=== PATIENT | female | born 1995 | race Caucasian/White ===

== ENCOUNTER 2017-05-16 07:16 | Emergency (ER) | payer BC ==
[~2017-05-16] VITALS: Ht 160 cm; Wt 60.0 kg
[2017-05-16 07:26] VITALS: BP 123/72; PULSE 85; RESP 16; TEMP 98.1; O2SAT 100
--- NOTE | 2017-05-16 09:29 | PD ---
HPI Chief Complaint: Headache Time Seen by Provider: 09:28 Travel History International Travel<30 days: No Contact w/Intl Traveler<30days: No Traveled to known affect area: No History of Present Illness HPI 21-year-old female presents to the emergency Department with complaint of a migraine headache that started at approximately 8 PM last night. She has history of migraine headaches and she was in first grade. This headache is consistent with past headaches. The headache is behind her right eye. She reports vomiting. She does vomit with past migraine headaches also. She last vomited within the last 2 hours. Reports photophobia to the right eye. Denies change in vision. Denies change in mentation, confusion, disorientation, slurred speech, focal deficits or weakness. Rates headache 09/19. Describes it as a throbbing, knocking sensation. Has taken Excedrin and Zofran with no relief of symptoms. Says on the Excedrin doesn't work she goes to urgent care where she lives and they give her an antinausea medication, Toradol, and Benadryl and it works for her. She also gets Botox injections every 3 months for her migraine headaches, but she says she is overdue. She was in the sun yesterday and has a sunburn and thinks it may have exacerbated her headache. She is here on vacation her primary care provider is in [place]. No known allergies. History of migraines. Denies other significant past medical history. Has no other medical complaints. No other modifying factors or associated signs and symptoms. PFSH Social History Alcohol Use: Yes (socially) Tobacco Use: No Substance Use: No Allergies-Medications (Allergen,Severity, Reaction): Coded Allergies: No Known Allergies (Unverified , 05/16/17) Reported Meds & Prescriptions Reported Meds & Active Scripts Active Zofran Odt (Ondansetron Odt) 4 Mg Tab 4 Mg SL Q8HR PRN Ibuprofen 800 Mg Tab 800 Mg PO Q8H PRN Reported [birthcontrol] PO DAILY Lexapro (Escitalopram Oxalate) 10 Mg Tab 10 Mg PO DAILY Review of Systems Except as stated in HPI: all other systems reviewed are Neg Physical Exam Narrative GENERAL: Well-nourished, well-developed female patient, in no acute distress SKIN: Warm and dry. HEAD: Atraumatic. Normocephalic. No facial droop noted. Tetanus midline. Shoulder shrug equal. Finger to nose test normal. EYES: Pupils equal and round at 4 mm with brisk reaction. No scleral icterus. No injection or drainage. PERRLA. EOMI. ENT: Mucosa pink and moist. Airway patent. NECK: Trachea midline. No lymphadenopathy. CARDIOVASCULAR: Regular rate and rhythm. No murmur appreciated. RESPIRATORY: No accessory muscle use. Clear to auscultation. Breath sounds equal bilaterally. GASTROINTESTINAL: Abdomen soft, non-tender, nondistended. Hepatic and splenic margins not palpable. Bowel sounds are active 4 quadrants. MUSCULOSKELETAL: No obvious deformities. No clubbing. No cyanosis. No edema. NEUROLOGICAL: Awake and alert. Oriented 4. No obvious cranial nerve deficits. Motor grossly within normal limits. Normal speech. No ataxia. No mid -line drift. No upper or lower extremity drift. Sensory intact and equal bilaterally. Moves all extremities. 5/5 strength to all extremities. PSYCHIATRIC: Appropriate mood and affect; insight and judgment normal. Data Data Last Documented VS Vital Signs Date Time Temp Pulse Resp B/P (MAP) Pulse Ox O2 Delivery O2 Flow Rate FiO2 05/16/17 07:26 98.1 85 16 123/72 (89) 100 Orders Orders Iv Access Insert/Monitor (05/16/17 09:30) Sodium Chloride 0.9% Flush (Ns Flush) (05/16/17 09:30) Ketorolac Inj (Toradol Inj) (05/16/17 09:30) Prochlorperazine Inj (Compazine Inj) (05/16/17 09:30) Diphenhydramine Inj (Benadryl Inj) (05/16/17 09:30) Sodium Chlor 0.9% 1000 Ml Inj (Ns 1000 M (05/16/17 09:30) Sodium Chlor 0.9% 1000 Ml Inj (Ns 1000 M (05/16/17 10:30) Ketorolac Inj (Toradol Inj) (05/16/17 10:45) MDM Medical Decision Making Medical Screen Exam Complete: Yes Emergency Medical Condition: Yes Medical Record Reviewed: Yes Differential Diagnosis Migraine headache, acute headache, tension headache Narrative Course 21-year-old female with history of migraine headaches presents with onset of migraine headache at approximately 8 PM last night. This headache is consistent with past headaches. Her neuro exam is unremarkable. She is very familiar with the treatment of her headaches and is requesting an antinausea medication, Toradol, and Benadryl. IV, Benadryl, Toradol, Compazine ordered. 1028: Patient continues to have headache as says it hasn't gone down at all. She was just administered compazine. Says Imitrex gave her lock jaw the last time it was given to her. I will order another NS bolus and 30mg IM Toradol and re-evaluate. 1139: Patient says her headache is completely gone. Rates pain 0/10. Ibuprofen and Zofran prescribed for home. Instructed patient to follow up with primary care provider. Patient verbalizes understanding and agreement with treatment plan. Patient is medically cleared and stable for discharge. Discussed reasons to return to the emergency department. Patient agrees with treatment plan. The patients vital signs are stable and the patient is stable for outpatient follow-up and treatment. Patient discharged home, stable and in no acute distress. Diagnosis Primary Impression: Migraine headache Qualified Codes: G43.909 - Migraine, unspecified, not intractable, without status migrainosus Referrals: Neurologist Primary Care Physician Patient Instructions: General Instructions, Migraine Headache (ED) Additional Instructions: Ibuprofen or Tylenol as directed and as needed to reduce headache Get plenty of rest: do not over sleep rest and relax in a dark, quiet room as needed Place an ice pack on the back of her neck to reduce head pain as needed Keep a headache diary of what triggers her headaches and what treatment is most effective Avoid identifiable triggers Avoid smoking, alcohol and caffeine consumption Reduce stress Follow-up with primary care provider within 1-2 days Follow-up with neurology Return immediately to the emergency department with worsening symptoms Med/Other Pt SpecificInfo: Prescription(s) given Scripts Ondansetron Odt (Zofran Odt) 4 Mg Tab 4 MG SL Q8HR Y for Nausea/Vomiting, #6 TAB 0 Refills Prov: Padma Porter 05/16/17 Ibuprofen (Ibuprofen) 800 Mg Tab 800 MG PO Q8H Y for PAIN SCALE 1 TO 10, #20 TAB 0 Refills Prov: Padma Porter 05/16/17 Disposition: 01 DISCHARGE HOME Condition: Stable Padma Porter May 16, 2017 09:29
[2017-05-16] MEDS ORDERED: SODIUM CHLOR 0.9% 1000 ML INJ 1,000 ML IV ONE ×2 (09:30→10:30)
[2017-05-16] MEDS ORDERED: diphenhydrAMINE HCL 50 MG/ML VIAL IVP ONE (09:30)
[2017-05-16] MEDS ORDERED: KETOROLAC TROMETHAMINE 30 MG/ML (IVP) VIAL IVP ONE (09:30)
[2017-05-16] MEDS ORDERED: PROCHLORPERAZINE INJ 10 MG/2 ML VIAL IVP ONE (09:30)
[2017-05-16] MEDS ORDERED: SODIUM CHLORIDE 0.9% FLUSH 10 ML FLUSH IVF PRN (09:30)
[2017-05-16] MEDS ORDERED: birthcontrol PO (09:32)
[2017-05-16] MEDS ORDERED: LEXA10TA PO (09:32)
[2017-05-16] MEDS ORDERED: KETOROLAC TROMETHAMINE 60 MG/2 ML (IM) VIAL IM ONE (10:45)
[2017-05-16] MEDS ORDERED: ZOFR4TAB3 SL (11:41)
[2017-05-16] MEDS ORDERED: IBUP1TAB7 PO (11:41)
[2017-05-16 12:05] VITALS: BP 110/56
== END 2017-05-16 12:07 | disposition home or self-care (01) ==
LOC: NEPD 07:16
DX: G43.909 Migraine, unspecified, not intractable, without status migrainosus (principal)
CPT/HCPCS: 96372; 96374; 96375; 99284; J0780; J1200; J1885; J7030